=== PATIENT | male | born 1975 | race Asian ===

== ENCOUNTER 2025-07-29 08:48 | Outpatient (AMB) | payer MEDICAID, SELFPAY ==
--- NOTE | 2025-07-29 08:53 | A.OFFVIS_ITS ---
Intake Visit Reasons: low testosterone Intake Note: Patient is present for LOW TESTOSTERONE Urology Medication:NONE Antibiotic Allergy:NONE Blood Thinner:NONE TODAY'S PVR:0ML'S Sales Analyst Required: No Allergies No Known Allergies Allergy (Verified 07/29/25 09:30) Medication List - Last Reconciled 07/29/25 by ALESSIO Pathak-GIAN alcohol swabs (Alcohol Prep Pads) pad topical DAILY aspirin 81 mg PO DAILY ergocalciferol (vitamin D2) 1,250 mcg PO QWEEK fenofibric acid (choline) 135 mg PO DAILY lancets (FreeStyle Lancets) As directed metformin 500 mg PO QAM simvastatin 10 mg PO BEDTIME HPI Comments Details: William is a pleasabt 49 year old male patient of Dr. Gonzalez who was accompanied by his significant other at today's office visit. He has a past me dical history of pre-diabetes, hyperlipidemia, and nephrolithiasis. He presents to the office today as a new patient for hypogonadism. In discussion with the patient today reports having followed up with his PCP and having had blood work done at which time recommendations were made for urology referral for further assessment evaluation. We did discussed potential causes of hypogonadism as well as signs and symptoms of hypogonadism. He does not feel he has any symptoms. He denies fatigue, low libido, ED, memory followed, and or any signs and symptoms of hypogonadism. He brings with him to the office today labs. It appears testosterone 03/26 237, A1c 03/26 5.9. He does report previous history of nephrolithiasis 2-3 years ago however never requiring surgical intervention. When asked he denies any bothersome urinary issues. He denies urinary urgency, urinary frequency, incontinence, nocturia, hematuria, dysuria, foul smelling urine, changes to urinary stream, flank pain, fever, and or chills. He is happy with his current voiding parameters. In office urinalysis results reviewed with the patient today. We discussed further workup of nephrolithiasis as well as hypogonadism and risks and benefits of these interventions. When asked he denies any previous history of anabolic steroid use, recent illnesses, trauma, and or recreational drug use. All questions were answered. He otherwise offers no other issues or concerns at this time. [facility] Medical History Dermatitis Fatigue Low testosterone in male Mixed hyperlipidemia Prediabetes Review of Systems Const All systems reviewed & are unremarkable except as noted in HPI and below Physical Exam Const General: cooperative, healthy appearing, comfortable, no acute distress, well developed, alert and awake Nutritional Appearance: overweight Orientation/consciousness: patient oriented x3 Limitations: no limitations HEENT Head: Yes normal to inspection, Yes normocephalic and Yes atraumatic Ears: hearing grossly normal bilaterally Eyes General: appearance normal, both eyes and all related structures Neck Neck: Yes normal visual inspection and Yes trachea midline Chest Chest palpation & inspection: normal inspection of the chest Resp Effort & Inspection: normal respiratory effort and able to speak in complete sentences Cardio Rate: regular rate GI Inspection: Yes normal to inspection General: Yes no CVA tenderness Back/Spine/Pelvis Back: no CVA tenderness Skin General skin exam: no rashes or lesions noted Neuro General: patient oriented x3 Extrem General: Yes normal to inspection Psych Appearance: grossly normal and well kempt Mental Status: mental status grossly normal Speech and movement: Normal speech and movement present and Clear speech present Affect: normal affect Attitude: cooperative Thought process: Normal thought process present Thought content: Normal thought content present Insight: Fair insight present (Psych) Judgement: Fair judgement present (Psych) Office Procedures Post Void Residual Post Residual Void Post Void Residual (PVR): 0 [id number] Void Residual by ultrasound Results AMB Urinalysis, Automated UA Leukoctes 0 Asha/uL Last Edit by SALMA Treviño on 07/29/25 09:06 UA Nitrite Negative Last Edit by SALMA Treviño on 07/29/25 09:06 UA Urobilinogen 0.2 mg/dL Last Edit by SALMA Treviño on 07/29/25 09:0 6 UA Protein 30 mg/dL Last Edit by SALMA Treviño on 07/29/25 09:06 UA pH 6.0 Last Edit by SALMA Treviño on 07/29/25 09:06 UA Blood 0 Luis Carlos/uL Last Edit by SALMA Treviño on 07/29/25 09:06 UA Specific [place] 1.025 Last Edit by SALMA Treviño on 07/29/25 09: 06 UA Ketone Negative Last Edit by SALMA Treviño on 07/29/25 09:06 UA Bilirubin 0 mg/dL Last Edit by SALMA Treviño on 07/29/25 09:06 UA Glucose 0 mg/dL Last Edit by SALMA Treviño on 07/29/25 09:06 Results Reviewed Results Reviewed: Laboratory Last Values Urine pH (Auto) 6.0 07/29/25 09:06 Specific [place] (Auto) 1.025 07/29/25 09:06 Urine Protein (Auto) 30 mg/dL 07/29/25 09:06 Glucose (UA)(Auto) 0 mg/dL 07/29/25 09:06 Urine Ketones (Auto) Negative 07/29/25 09:06 Urine Blood (Auto) 0 Luis Carlos/uL 07/29/25 09:06 Urine Nitrite (Auto) Negative 07/29/25 09:06 Urine Bilirubin (Auto) 0 mg/dL 07/29/25 09:06 Urine Urobilinogen (Auto) 0.2 mg/dL 07/29/25 09:06 Leukocyte Esterase (Auto) 0 Asha/uL 07/29/25 09:06 Assessment & Plan Assessment & Plan (1) Hypogonadism in male: Code(s): E29.1 - Testicular hypofunction Category: Medical (2) Nephrolithiasis: Code(s): N20.0 - Calculus of kidney Category: Medical Plan In office urinalysis results with the patient today; as noted above. We discussed potential causes of hypogonadism as well as further workup in risks and benefits of these interventions. He currently denies any bothersome urinary issues. He reports be happy with current voiding parameters. Will obtain renal ultrasound for history of nephrolithiasis. All questions were answered. Will obtain SHBG, PSA, testosterone free and total, prolactin, LH, FSH, and estradiol for further assessment evaluation. We did discuss lifestyle modifications to assist with hypogonadism. We discussed importance of adequate hydration relation to nephrolithiasis as well as overall health and well-being. Follow-up in 1-3 months with imaging and labs; or sooner with any issues, concerns, and or questions. Orders: Orders AMB Urinalysis Automated Today Z13.9 - Encounter for screening, unspecified Sex Hormone Binding Globulin Today E29.1 - Testicular hypofunction Prostate Specific Antigen Today E29.1 - Testicular hypofunction US renal BI Today N20.0 - Calculus of kidney Testosterone, Free/Total Today E29.1 - Testicular hypofunction Prolactin Today E29.1 - Testicular hypofunction Lutenizing Hormone Today E29.1 - Testicular hypofunction Follicle Stimulating Hormone Today E29.1 - Testicular hypofunction Estrad Free (Tot Ultra + Free) Today E29.1 - Testicular hypofunction Patient Instructions: The patient had an opportunity to ask questions regarding the treatment plan. All questions were answered. Physical exam, labs, and imaging were discussed and reviewed in detail. As well as risks, benefits, and discussion of treatment choices. No major barriers to understanding were identified. The patient expressed understanding and agreement with the above treatment plan. The patient was made aware they should contact our office by phone for worsening of their current condition, the appearance of new symptoms, or with any questions or concerns. Compliance is encouraged with any medications and follow up testing that is ordered. It is a privilege to be allowed the opportunity to participate in? your urological care.? Again, if you have any questions or concerns If you have any questions or concerns please do not hesitate to contact me. The office is [phone]. This note is constructed using voice recognition software. While every effort has been made to ensure accuracy catering director errors may have been included. Yours sincerely, BARRETT Pathak Coding Level of Care Code New Pt Level 3 (06651) Diagnoses Hypogonadism in male E29.1 Nephrolithiasis N20.0 CPT Codes Post Residual Void - PVR CPT Code: 78920-[id number] Void Residual by ultrasound ([id number])
--- OUTSIDE RECORDS SUMMARY | 2025-07-29 09:35 | XMS_ITS | Clinical Summary ---
Author Organization [facility] Address [address] [place] [address] Care Team Providers Care Records Administrator Name Role Phone Unavailable Primary Care Provider Unavailabl e Encounters Date Type Department Care Team Description 06/22/2025 Population Health Risk Score [facility] Care [facility] ([facility]) Department [address] [place] [id number] Provider, Population Health Generic from Last 3 Months Social History Tobacco Use Types Packs/Day Years Used Date Smoking Tobacco: Never Assessed Sex and Gender Information Value Date Recorded Sex Assigned at Not on file Legal Sex Male 9:29 PM EDT Gender Identity Not on file Sexual Orientation Not on file Plan of Treatment Health Maintenance Due Date Last Done Comments CT Colonography 1973 Depression Screening 1973 FIT DNA/Cologuard 1973 FOBT 1973 Lipid Panel 1973 SDOH Screening 1973 Sigmoidoscopy 1973 Disability Screening 1973 Alcohol/Substance Use Screening 1985 Tobacco Screening 1985 Family Planning (PISQ) 1988 Hepatitis C Screening 1991 Hepatitis A Vaccines (1 of 2 - Risk 2-dose series) 1992 FIT 10/12/2022 10/12/2021 Pneumococcal Vaccine: 50+ Years (1 of 1 - PCV) 2023 Zoster Vaccines (1 of 2) 2023 COVID-19 Vaccine (2023- season) 2024 05/23/2022, 05/02/2021, 04/04/2021 Hepatitis B Vaccines (2 of 2 - CpG 2-dose series) 10/20/2024 09/22/2024 Influenza Vaccine (#1) 2025 , 09/22/2021, 10/10/2020, Additional history exists DTaP/Tdap/Td Vaccines (2 - Td or Tdap) 09/22/2031 09/22/2021 Colonoscopy 11/04/2034 11/04/2024 Colorectal Cancer Screening 11/04/2034 RSV Patients and Patients Aged 60 years or older (1 - 1-dose 75+ series) 2048 HIV Screening Completed 07/21/2024, 07/21/2024 HIB Vaccines Aged Out No longer eligi ble based on patient's age to complete this topic HPV Vaccines Aged Out No longer eligi ble based on patient's age to complete this topic IPV Vaccines Aged Out No longer eligi ble based on patient's age to complete this topic Meningococcal B Vaccine Aged Out No l onger eligible based on patient's age to complete this topic Meningococcal Vaccine Aged Out No perez sarah eligible based on patient's age to complete this topic RSV under 20 months Aged Out No longe r eligible based on patient's age to complete this topic Rotavirus Vaccines Aged Out No longer eligible based on patient's age to complete this topic
--- OUTSIDE RECORDS SUMMARY | 2025-07-29 09:35 | XMS_ITS | Clinical Summary ---
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 Name Role Phone Giselle Lindsey [facility] Primary Care Provider [phone] Source Comments PLEASE NOTE, if this patient is a minor, it may be UNLAWFUL to discuss sensitive information that is contained in these records (such as FAMILY PLANNING, MENTAL HEALTH or SUBSTANCE ABUSE) with the minor patient's parent or other person without the patient's specific authorization.[facility] Allergies No known active allergies Medications aspirin-acetaminop hen-caffeine (EXCEDRIN MIGRAINE) 250-250-65 mg per tabletIndications: Other headache syndrome Take 2 Tabs by mouth 2 (two) times daily as needed for other reason (headache) Max 4 tabs per day 30 Tab 1 04/01/20 20 Active latanoprost (XALATAN) 0.005 % ophthalmic solutionIndication s:Acute upper back pain 02/14/20 22 Active travoprost (TRAVATAN Z) 0.004 % ophthalmic solutionIndication s:Absolute glaucoma of both eyes Apply 1 Drop to eye daily 2.5 mL 2 04/19/20 23 Active carbamide peroxide (DEBROX) 6.5 % otic solutionIndication s:Cerumen debris on tympanic membrane of both ears Place 5 Drops into both ears 2 (two) times daily 15 mL 11/27/20 23 Active clobetasoL (TEMOVATE) 0.05 % gelIndications:Ecz darian, unspecified type Apply topically 2 (two) times daily At right thumb 15 g 2 07/21/20 24 Active lidocaine (LIDODERM) 5 % patchIndications:E ssential hypertension Place 1 Patch onto the skin once daily (every 24 hours) For upper mid back pain. 30 Patch 2 07/21/20 24 Active ibuprofen 600 mg tabletIndications: Essential hypertension Take 1 Tablet by mouth 3 (three) times daily as needed for pain 60 Tablet 2 07/21/20 24 Active acetaminophen (TYLENOL) 500 mg tabletIndications: Essential hypertension Take 2 Tablets by mouth every 8 (eight) hours as needed for pain 6 tabs per day 60 Tablet 2 07/21/20 24 Active MISCELLANEOUS MEDICAL SUPPLY MISCIndications:Es sential hypertension Regular adult size Blood pressure meter. Daily. Dx:I10. Need; 1 year 1 Each 07/24/20 24 Active omeprazole (PRILOSEC) [address] capsuleIndications :H. pylori infection Take 1 Capsule by mouth 2 (two) times daily before a meal For heartburn 180 Capsule 1 07/24/20 24 Active meclizine (ANTIVERT) 25 mg tabletIndications: Vertigo Take 1 Tablet by mouth every 8 (eight) hours as needed for dizziness 30 Tablet 2 09/22/20 [address] tabletIndications: Essential hypertension Take 1 Tablet by mouth once daily 90 Tablet 3 11/16/20 24 Active sucralfate (CARAFATE) 100 mg/mL suspensionIndicati ons:H. pylori infection Take 10 mL by mouth 4 (four) times daily before meals and nightly As needed for heartburn 141 mL 2 03/03/20 25 Active blood-glucose meter monitoring kitIndications:Pre diabetes Freestyle lite glucometer, check sugar daily. Dx; R73.03 1 Each 03/03/20 25 Active blood sugar diagnostic stripsIndications: Prediabetes Freestyle lite teststrips, check sugar daily. Dx; R73.03 100 Each 03/18/20 25 Active alcohol swabsIndications:P rediabetes check sugar daily. Dx; R73.03 100 Each 03/18/20 25 Active lancetsIndications :Prediabetes Freestyle lite lancets, check sugar daily. Dx; R73.03 100 Each 03/18/20 25 Active fenofibric acid, choline, (TRILIPIX) [address] capsuleIndications :Hypertriglyceride jacqui Take 1 Capsule by mouth once daily For cholesterol 90 Capsule 1 03/18/20 25 Active DAILY-JIMI, WITH FOLIC ACID, 400 mcg tab Take 1 Tablet by mouth once daily Active testosterone (ANDROGEL) 12.5 mg/ 1.25 gram (1 %) gel pumpIndications:Te sticular hypofunction Place 2 Pumps onto the skin once daily for 30 days 75 g 04/08/20 25 Active metFORMIN (GLUCOPHAGE) 500 mg tabletIndications: Prediabetes Take 1 Tablet by mouth once daily with breakfast For prediabetes 90 Tablet 1 04/14/20 25 Active triamcinolone (KENALOG) 0.1 % lotionIndications: Other eczema Apply topically 2 (two) times daily 60 mL 1 04/14/20 25 Active vitamin B complex capsuleIndications :Other fatigue Take 1 Capsule by mouth once daily 90 Capsule 1 04/14/20 25 Active simvastatin (ZOCOR) 10 mg tabletIndications: Mixed hyperlipidemia Take 1 Tablet by mouth nightly at bedtime. 90 Tablet 1 05/19/20 25 Active multivitamin tabletIndications: Essential hypertension Take 1 Tablet by mouth once daily. 90 Tablet 3 05/19/20 25 Active hydrocortisone 2.5 % creamIndications:D ermatitis Apply topically 2 (two) times daily. 30 g 2 05/19/20 25 Active mineral oil-hydrophil petrolat (AQUAPHOR) ointmentIndication s:Dermatitis Apply topically 2 (two) times daily. 50 g 1 05/19/20 25 Active ergocalciferol (VITAMIN D-2) 1,250 mcg (50,000 unit) capsuleIndications :Vitamin D deficiency Take 1 Capsule by mouth once a week. 12 Capsule 3 05/20/20 25 Active enalapril (VASOTEC) 10 mg tabletIndications: Essential hypertension TAKE 1 TABLET BY MOUTH EVERY DAY FOR BLOOD PRESSURE 90 Tablet 05/30/20 25 Active Active Problems Problem Noted Date Diagnosed Date H. pylori infection 07/24/2024 Overview (07/24/2024): 07/24/2024: txt for H. pylori infection Plan : OMEPRAZOLE 20 MG CAPSULE,DELAYED RELEASE - Take 1 Capsule by mouth 2 (two) times daily before a meal For heartburn BISMUTH SUBSALICYLATE 262 MG CHEWABLE TABLET - Place 1 Tablet into mouth, chew and swallow 4 (four) times daily for 14 days TETRACYCLINE 500 MG CAPSULE - Take 1 Capsule by mouth 4 (four) times daily before meals and nightly for 14 days METRONIDAZOLE 500 MG TABLET - Take 1 Tablet by mouth 4 (four) times daily for 14 days 04/2023 txt: take omeprazole 20 mg twice a day then Take CLARITHROMYCIN 500 MG TABLET - Take 1 Tablet by mouth 2 (two) times daily for 14 days AMOXICILLIN 500 MG TABLET - Take 2 Tablets by mouth 2 (two) times daily for 14 days Impaired vision, left 04/05/2023 Overview (04/05/2023): 01/2023: Saw optahl; see note Epigastric abdominal pain 04/05/2023 Bunion, left foot 04/05/2023 Fatigue 04/05/2023 Forgetfulness 04/05/2023 Positive QuantiFERON-TB Gold test: did txt on 03/12/2022 Overview (03/12/2022): Pt had chest Xray on 02/09/2022 at [facility]: : FINDINGS: No significant abnormalities seen involving the heart, lungs, mediastinum or bony thorax. IMPRESSION: No acute intrathoracic disease. Family history of heart disease 02/20/2022 Colon, diverticulosis 08/23/2020 Overview (08/23/2020): 08/05/2020: CT of abd/pelvis at [facility]: Direct comparison to noncontrast Abdomen- Pelvis CT: 04/27/2019. Coronary artery calcification. Fatty liver (mild). Grossly intact gallbladder. Nonenlarged spleen with adjacent splenule. Essentially unremarkable unenhanced pancreas. No adrenal mass. Abdominal aorta normal in caliber. Unenhanced kidneys normal size and position. Nephrolithiasis includes essentially similar 5 mm curvilinear upper pole right renal stone and punctate interpole left renal stone. Essentially similar overall mild left-sided hydronephrosis secondary to a 3 mm rounded distal left ureteral stone located just proximal to left ureterovesicular junction (UVJ). Grossly intact urinary bladder. No intra-abdominal free air. No gross lymphadenopathy. Colonic diverticulosis. Grossly intact appendix. Mild lumbosacral degenerative disease. IMPRESSION: Mild left-sided obstructive uropathy secondary to distal left ureteral stone by noncontrast CT analysis, similar when compared to 04/27/2019. DDD (degenerative disc disease), lumbar 08/23/20 Overview (08/23/2020): 08/05/2020: CT of abd/pelvis at [facility]: Direct comparison to noncontrast Abdomen- Pelvis CT: 04/27/2019. Coronary artery calcification. Fatty liver (mild). Grossly intact gallbladder. Nonenlarged spleen with adjacent splenule. Essentially unremarkable unenhanced pancreas. No adrenal mass. Abdominal aorta normal in caliber. Unenhanced kidneys normal size and position. Nephrolithiasis includes essentially similar 5 mm curvilinear upper pole right renal stone and punctate interpole left renal stone. Essentially similar overall mild left-sided hydronephrosis secondary to a 3 mm rounded distal left ureteral stone located just proximal to left ureterovesicular junction (UVJ). Grossly intact urinary bladder. No intra-abdominal free air. No gross lymphadenopathy. Colonic diverticulosis. Grossly intact appendix. Mild lumbosacral degenerative disease. IMPRESSION: Mild left-sided obstructive uropathy secondary to distal left ureteral stone by noncontrast CT analysis, similar when compared to 04/27/2019. Left nephrolithiasis 08/23/2020 Overview (08/23/2020): 08/05/2020: CT of abd/pelvis at [facility]: Direct comparison to noncontrast Abdomen- Pelvis CT: 04/27/2019. Coronary artery calcification. Fatty liver (mild). Grossly intact gallbladder. Nonenlarged spleen with adjacent splenule. Essentially unremarkable unenhanced pancreas. No adrenal mass. Abdominal aorta normal in caliber. Unenhanced kidneys normal size and position. Nephrolithiasis includes essentially similar 5 mm curvilinear upper pole right renal stone and punctate interpole left renal stone. Essentially similar overall mild left-sided hydronephrosis secondary to a 3 mm rounded distal left ureteral stone located just proximal to left ureterovesicular junction (UVJ). Grossly intact urinary bladder. No intra-abdominal free air. No gross lymphadenopathy. Colonic diverticulosis. Grossly intact appendix. Mild lumbosacral degenerative disease. IMPRESSION: Mild left-sided obstructive uropathy secondary to distal left ureteral stone by noncontrast CT analysis, similar when compared to 04/27/2019. Fatty liver 08/23/2020 Overview (08/23/2020): 08/05/2020: CT of abd/pelvis at [facility]: Direct comparison to noncontrast Abdomen- Pelvis CT: 04/27/2019. Coronary artery calcification. Fatty liver (mild). Grossly intact gallbladder. Nonenlarged spleen with adjacent splenule. Essentially unremarkable unenhanced pancreas. No adrenal mass. Abdominal aorta normal in caliber. Unenhanced kidneys normal size and position. Nephrolithiasis includes essentially similar 5 mm curvilinear upper pole right renal stone and punctate interpole left renal stone. Essentially similar overall mild left-sided hydronephrosis secondary to a 3 mm rounded distal left ureteral stone located just proximal to left ureterovesicular junction (UVJ). Grossly intact urinary bladder. No intra-abdominal free air. No gross lymphadenopathy. Colonic diverticulosis. Grossly intact appendix. Mild lumbosacral degenerative disease. IMPRESSION: Mild left-sided obstructive uropathy secondary to distal left ureteral stone by noncontrast CT analysis, similar when compared to 04/27/2019. Decreased vision in both eyes 07/24/2020 Resolved Problems Problem Noted Date Diagnosed Date Resolved Date Lower abdominal pain 02/20/2022 023 Chest tightness 02/20/2022 04/05/2023 Encounters Date Type Department Care Team Description 05/20/2025 Results Follow-Up [address] [id number] Tabatha Gonzalez FNP 05/19/2025 11:20 AM EDT Office Visit [address] [address] Tabatha Gonzalez FNP from Last 3 Months Immunizations Immunization Administration Dates Next Due Flu, Adjuvant, 65y+ (Fluad) 10/10/2020 Flu, Cell Culture based, Pre servative Free, 6m+, Flucelvax 01/12/2020 Flu, Preservative Free 10/11/2022,09/22/2021,08/2020 Hep B,adult,adjuvanted (HEPLISAV) 09/22/2024 Moderna COVID-19 Vaccine, re d cap blue label, 12+ Primary Series 05/02/2021,04/04/2021 PFIZER COVID VACCINE, PURPLE CAP, 12+ 05/23/2022 TDAP 09/22/2021 Family History Medical History Relation Name Comments No Known Problems Brother Hypertension Father due to hea rt attack Heart Problems (aka Heart Disease) Mother Hypertension Mother Tuberculosis Mother Heart Problems Sister due to h eart attack Relation Name Status Comments Brother Alive Father Maternal Grandfather Maternal Grandmother Mother Other Sister (Age 56) Heart lizet ck Paternal Grandfather Paternal Grandmother Sister Social History Tobacco Use Types Packs/Day Years Used Date Smoking Tobacco: Never Smokeless Tobacco: Never Tobacco Cessation:Counseling Given: Not Answered Alcohol Use Standard Drinks/Week Comments Never 0 (1 standard drink = 0.6 oz pur e alcohol) Social Connections Answer Date Recorded Connectedness 0 08/14/2024 Financial Resource Strain Answer Date R ecorded Financial Resource Strain 0 2018 Stress Answer Date Recorded Stress 0 07/27/2019 Physical Activity Answer Date Recorded Physical Activity 0 07/27/2019 Food Insecurity Answer Date Recorded Food 0 08/27/2024 Transportation Needs Answer Date Record ed Transportation 0 07/27/2019 Housing Stability Answer Date Recorded Housing 0 07/27/2019 Safety and Environment Answer Date [place] rded Safety 0 07/27/2019 Utilities Answer Date Recorded Utilities 0 07/27/2019 Employment Answer Date Recorded Stress 0 08/14/2024 Sex and Gender Information Value Date Recorded Sex Assigned at Male 04/10/2019 2:25 PM PDT Legal Sex Male 6:37 AM PDT Gender Identity Male 04/10/2019 2:25 PM PDT Sexual Orientation Straight 04/10/2019 2: 25 PM PDT Last Filed Vital Signs Vital Sign Reading Time Taken Comments Blood Pressure 112/70 05/19/2025 11:26 AM EDT Pulse 74 05/19/2025 11:26 AM EDT Temperature 36.9 C (98.4 F) 05/19/2025 11:26 AM EDT Respiratory Rate 16 05/19/2025 11:26 AM EDT Oxygen Saturation 98% 05/19/2025 11:26 AM EDT Inhaled Oxygen Concentration - - Weight 93 kg (205 lb) 05/19/2025 11:26 AM EDT Height 172.7 cm (5' 8 ) 05/19/2025 11:26 AM EDT Body Mass Index 31.17 05/19/2025 11:26 AM EDT Plan of Treatment Health Maintenance Due Date Last Done Comments Dental FMX/Pano 1973 Dental Perio Charting [address] Colonography 2018 Fecal DNA 2018 Flexible Sigmoidoscopy 2018 FIT/gFOBT 10/12/2022 10/12/2021 Imm-Pneumococcal 50+ (1 of 1 - PCV) 2023 Imm-Zoster, Recombinant (1 of 2) 2023 Dental BW 05/26/2024 05/24/2023 Dental Examination 05/26/2024 05/24/2023 [id number] ( season) 2024 05/23/2022, 05/02/2021, 04/04/2021 Imm-Hepatitis B (2 of 2 - Cp G 2-dose series) 10/20/2024 09/22/2024 HIV Screening 07/21/2025 07/21/2024, 01/25/2021 Syphilis Screening 07/21/2025 07/21/2024 Imm-Influenza (#1) 2025 10/11/2022, 1 , 10/10/2020, Additional history exists Annual Wellness (Adult): Indicated (All Coverage) 09/22/2025 09/22/2024, 04/05/2023, 05/25/2019 Diabetes Screening 03/23/2026 03/23/2025, 0 03/23/2025, 07/21/2024, Additional history exists Lipid Screening 03/23/2026 03/23/2025, 08/2 , 04/05/2023, Additional history exists Anxiety Screening 04/14/2026 04/14/2025 Tobacco Screening 05/19/2026 05/19/2025 Imm-DTaP/Tdap/Td (2 - Td or Tdap) 09/22/2031 021 Colonoscopy 11/04/2034 11/04/2024 Colorectal Cancer Screening 11/04/2034 Hepatitis C Screening Completed 01/25/2021 Hepatitis B Screening Completed 07/21/2024 , 07/21/2024, 04/05/2023, Additional history exists Alcohol and Drug Screen Completed 03/18/20, 07/21/2024, 02/14/2022, Additional history exists Depression Annual Screen Completed 04/14/2025 Imm-Hepatitis A Discontinued Procedures Procedure Name Priority Date/Time Associated Diagnosis Comments IRON, TIBC, FERRITIN PANEL Routine 05/19/2025 11:59 AM EDT Fatigue, unspecified type 25 HYDROXY INCLUDES FRACTIONS IF PERFORMED Routine 05/19/2025 11:59 AM EDT Fatigue, unspecified type HGA1C W/EAG Routine 03/23/2025 1:23 PM EDT Prediabetes LIPIDS W RFLX TO DIRECT LDL Routine 03/23/2025 1:23 PM EDT Hypertriglyceridemi a HISTORIC COLONOSCOPY 11/04/2024 3:00 AM EST HIV 1/2 AG & AB W/RFLX (4TH GEN) Routine 07/21/2024 5:31 PM EDT Eczema, unspecified type H. pylori infection Essential hypertension Encounter for laboratory test RPR (DIAGNOSIS) WITH REFLEX TO TITER AND CONFIRMATORY TESTING Routine 07/21/2024 5:31 PM EDT Eczema, unspecified type H. pylori infection Essential hypertension Encounter for laboratory test HEPATITIS B SURFACE AG, EIA WITH REFLEX CONFIRM Routine 07/21/2024 5:31 PM EDT Eczema, unspecified type H. pylori infection Essential hypertension Encounter for laboratory test BITEWINGS - FOUR RADIOGRAPHIC IMAGES Routine 05/24/2023 10:20 AM EDT Caries Encounter for dental examination Full PERIODIC ORAL EVALUATION ESTABLISHED PATIENT Routine 05/24/2023 10:20 AM EDT Caries Encounter for dental examination FECAL GLOBIN BY IMMUNOCHEMISTRY (FIT) Routine 10/12/2021 12:38 PM EST Colon cancer screening HEPATITIS C ANTIBODY Routine 01/25/2021 11:31 AM EST Essential hypertension from Last 3 Months or Most Recently Relevant to Health Maintenance Results * IRON, TIBC, FERRITIN PANEL Routine (05/19/2025 11:59 AM EDT) FERRITIN 103 38 - 380 ng/mL Green A IRON, TOTAL 127 50 - 180 mcg/dL [facility] IRON BINDING CAPACITY 385 250 - 425 mcg/dL (calc) [facility] % SATURATION 33 20 - 48 % (calc) Green A Blood Blood / Unknown 05/19/2025 1 1:59 AM EDT 05/19/2025 12:00 PM EDT Narrative [facility] - 05/20/2025 6:49 PM EDT FASTING:NO Tabatha YUNP LAB - BLOOD DRAW Fin al Result [employer] [address] [place] [id number], [facility] [address] [address] * (ABNORMAL) 25 HYDROXY INCLUDES FRACTIONS IF PERFORMED Routine (05/19/2025 11:59 AM EDT) VITAMIN D, 25-OH, TOTAL 19(L) 30 - 100 ng/mL [facility] Comment: Vitamin D Status 25-OH Vitamin D: Deficiency: <20 ng/mL Insufficiency: 20 - 29 ng/mL Optimal: > or = 30 ng/mL For 25-OH Vitamin D testing on patients on D2-supplementation and patients for whom quantitation of D2 and D3 fractions is required, the QuestAssureD(TM) 25-OH VIT D, (D2,D3), LC/MS/MS is recommended: order code 35910 (patients >2yrs). COMMENT [facility] [employer] Blood Blood / Unknown 05/19/2025 1 1:59 AM EDT 05/19/2025 12:00 PM EDT Narrative [employer] - 05/20/2025 6:49 PM EDT FASTING:NO See Note 1 Note 1 For additional information, please refer to http://education.Alfalight/faq/ASE687 (This link is being provided for informational/ educational purposes only.) Tabatha Carlos [facility] LAB - BLOOD DRAW Leroy nancy Result - Final Performing Organization Address [facility] de Phone Number [employer] [address] [place] [phone], [facility] [address] [phone] * (ABNORMAL) HGA1C W/EAG (03/23/2025 1:23 PM EDT) HEMOGLOBIN A1C 5.9(H) <5.7 % Green [facility] Comment: For someone without known diabetes, a hemoglobin A1c value between 5.7% and 6.4% is consistent with prediabetes and should be confirmed with a follow-up test. For someone with known diabetes, a value <7% indicates that their diabetes is well controlled. A1c targets should be individualized based on duration of diabetes, age, comorbid conditions, and other considerations. This assay result is consistent with an increased risk of diabetes. Currently, no consensus exists regarding use of hemoglobin A1c for diagnosis of diabetes for children. EAG (MG/DL) 123 mg/dL [facility] EAG (MMOL/L) 6.8 mmol/L [facility] Blood Blood / Unknown 03/23/2025 1 :23 PM EDT 03/23/2025 1:24 PM EDT Narrative [employer] - 03/27/2025 5:36 PM EDT FASTING:NO Tabatha Carlos [facility] LAB - BLOOD DRAW Leroy nancy Result - Final Performing Organization Address [facility]/ZIP Co de Phone Number [employer] [address] [place] [address] [place] [address], [employer] [facility] [address] [place] [address] * (ABNORMAL) LIPIDS W RFLX TO DIRECT LDL (03/23/2025 1:23 PM EDT) CHOLESTEROL, TOTAL 178 <200 mg/dL [employer] [facility] HDL CHOLESTEROL 34(L) > OR = 40 mg/dL [employer] [facility] TRIGLYCERIDES 327(H) <150 mg/dL [employer] [facility] Comment: If a non-fasting specimen was collected, consider repeat triglyceride testing on a fasting specimen if clinically indicated. Brianne et al. J. of Clin. Lipidol. 2015;9:129-169. LDL-CHOLESTEROL 100(H) 99 mg/dL (calc) [employer] [facility] Comment: Reference range: <100 Desirable range <100 mg/dL for primary prevention; <70 mg/dL for patients with CHD or diabetic patients with > or = 2 CHD risk factors. LDL-C is now calculated using the Mike-Rajiv calculation, which is a validated novel method providing better accuracy than the Friedewald equation in the estimation of LDL-C. Mike KENNY et al. ADDIE. 2013;310(19): 6960-9402 (http://education.Alfalight/faq/BYS866) CHOL/HDLC RATIO 5.2(H) <5.0 (calc) [facility] NON-HDL CHOLESTEROL 144(H) <130 mg/dL (calc) [employer] [facility] Comment: For patients with diabetes plus 1 major ASCVD risk factor, treating to a non-HDL-C goal of <100 mg/dL (LDL-C of <70 mg/dL) is considered a therapeutic option. Blood Blood / Unknown 03/23/2025 1 :23 PM EDT 03/23/2025 1:24 PM EDT Narrative [facility] - 03/27/2025 5:36 PM EDT FASTING:NO Tabatha MCCALLUM LAB - BLOOD DRAW Fin al Result [facility] [address] [address], [place] [address] [address] * HISTORIC COLONOSCOPY (11/04/2024 3:00 AM EST) 11/04/2024 3:00 AM EST Giselle [place] [facility] PROCEDURES Final Result * RPR (DIAGNOSIS) WITH REFLEX TO TITER AND CONFIRMATORY TESTING (07/21/2024 5:31 PM EDT) RPR (DX) W/REFL TITER AND CONFIRMATORY TESTING NON-REACT DAYANA NON-REACT DAYANA [employer] [facility] Comment: No laboratory evidence of syphilis. If recent exposure is suspected, submit a new sample in 2-4 weeks. Serum Blood / Unknown 07/21/2024 5 :31 PM EDT 07/21/2024 5:32 PM EDT [facility] [place] Jielai CommunicationFormerly [facility] LAB - BLOOD DRAW Edited Result - Final [employer] [address] [address], [employer] [address] [address] * HIV 1/2 AG & AB W/RFLX (4TH GEN) (07/21/2024 5:31 PM EDT) HIV AG/AB, 4TH GEN NON-REAC TIVE NON-REAC TIVE [employer] [facility] Comment: HIV-1 antigen and HIV-1/HIV-2 antibodies were not detected. There is no laboratory evidence of HIV infection. PLEASE NOTE: This information has been disclosed to you from records whose confidentiality may be protected by state law. If your state requires such protection, then the state law prohibits you from making any further disclosure of the information without the specific written consent of the person to whom it pertains, or as otherwise permitted by law. A general authorization for the release of medical or other information is NOT sufficient for this purpose. For additional information please refer to http://education.GetThis/faq/EBZ612 (This link is being provided for informational/ educational purposes only.) The performance of this assay has not been clinically validated in patients less than 2 years old. Blood Blood / Unknown 07/21/2024 5 :31 PM EDT 07/21/2024 5:32 PM EDT [facility] LAB - BLOOD DRAW Final Result Performing Organization Address [facility] Co de Phone Number [employer] [address] [address], [employer] [address] [phone] * HEPATITIS B SURFACE AG, EIA WITH REFLEX CONFIRM (07/21/2024 5:31 PM EDT) HEPATITIS B SURFACE ANTIGEN NON-REACT DAYANA NON-REACT DAYANA [employer] [facility] COMMENT [facility] [employer] [facility] Blood Blood / Unknown 07/21/2024 5 :31 PM EDT 07/21/2024 5:32 PM EDT Narrative [facility] - 07/23/2024 10:56 AM EDT For additional information, please refer to http://education.GetThis/faq/ZJM275 (This link is being provided for informational/ educational purposes only.) Giselle GuFormerly [facility] LAB - BLOOD DRAW Edited Result - Final Performing Organization Address [facility] de Phone Number [employer] [address] [address], [employer] [address] [address] * FIT DIAGNOSITC ONLY (10/12/2021 12:38 PM EST) FECAL GLOBIN BY IMMUNOCHEMISTRY See Note [employer] [facility] Comment: FECAL GLOBIN BY IMMUNOCHEMISTRY Micro Number: [id number] Test Status: Final Specimen Source: Insure (tm) fobt test card Specimen Quality: Adequate Fecal Globin: Not Detected NO COLLECTION DATE RECEIVED. WE HAVE USED THE DATE THE SPECIMEN WAS RECEIVED BY THIS LABORATORY THE COLLECTION DATE. IF THIS IS INCORRECT, PLEASE CONTACT CLIENT SERVICES. PHONE NUMBER: Stool Stool specimen / Unknown 10/11/2021 8:58 AM EST Giselle Theodoredewaynekaylynn MANUFACTURING CHIEF ENGINEER LAB BODY FLUIDS AND STOOLS AMB ULATORY Final Result [facility] [address] [address], [facility] [address] [address] * HEPATITIS C ANTIBODY (01/25/2021 11:31 AM EST) HEPATITIS C VIRUS SCREEN NEGATIVE NEGATIVE [facility] Blood Blood / Unknown 01/25/2021 1 1:31 AM EST 01/25/2021 3:46 PM EST Narrative [facility] - 01/25/2021 5:38 PM EST [facility] [employer] [address] Professor Of French - Jacqueline Krishnamurthy MD PT ID [id number] ORD# [id number] Giselle Lindsey [facility] - BLOOD DRAW Final Result Performing Organization Address City/[facility]/ZIP Co de Phone Number [address] [address], from Last 3 Months or Most Recently Relevant to Health Maintenance [place] MED[place] D[place] [facility] NET DENTAL [address] ACO Care Teams Deputy Harbormaster Relationship Specialty Start Date End Date Giselle Lindsey FNP [address] [place] [address] PCP - General Internal Medicine 09/05/19
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
== END 2025-07-29 09:33 | disposition home or self-care (01) ==
LOC: HO.HUSH 08:49
PROVIDERS: Visit Provider Nurse Practitioner Family
DX: E29.1 Testicular hypofunction (principal); N20.0 Calculus of kidney; Z13.9 Encounter for screening, unspecified
CPT/HCPCS: 99203

== ENCOUNTER → 2025-07-29 08:48 | Outpatient (BNVA) | payer MEDICAID, SELFPAY | PROVIDERS: Visit Provider Nurse Practitioner Family | DX: E29.1 Testicular hypofunction (principal); N20.0 Calculus of kidney | CPT/HCPCS: 51798; 81003; 99212 ==

== ENCOUNTER 2025-09-29 11:36 | Outpatient (REF) | payer MEDICAID, SELFPAY ==
--- OUTSIDE RECORDS SUMMARY | 2025-09-24 10:40 | XMS_ITS | Encounter Summary ---
Author Organization [facility] Address [address] [place] [address] Care Team Providers Care Chemists Name Role Phone Giselle Lindsey Primary Care Provider [phone] Reason for Referral * Ophthalmology (Routine) - New Request Specialty Diagnoses / Procedures Referred By Sanam flores Referred To Contact Ophthalmology Diagnoses Impaired vision Giselle Lindsey FNP [address] [place] [address] Phone: tel: fax: Referral ID Status Reason Start Date Expiration Date Visits Requested Visits Authorized [id number] New Request Specialty Services Required 09/27/2026 1 1 Comments Ref to opthal for low vision at left eye. Need Mongolian int. Please eval and treat. Make actual appt for pt. (Ref department; Do not send pt to eye and lasik, clinic will not see him.) Reason for Visit * Reason Comments Complete Physical Exam Encounter Details Date Type Department Care Team (Late st Contact Info) Description 09/24/2025 10:40 AM EDT Office Visit [address] [phone] Giselle Lindsey FNP [address] [place] [address] Social History Tobacco Use Types Packs/Day Years [...] Orientation Straight 04/10/2019 2: 25 PM PDT documented as of this encounter Last Filed Vital Signs Vital Sign Reading Time Taken Comments Blood Pressure 108/82 09/24/2025 10:52 AM EDT Pulse 72 09/24/2025 10:52 AM EDT Temperature 36.7 C (98.1 F) 09/24/2025 10:52 AM EDT Respiratory Rate 16 09/24/2025 10:52 AM EDT Oxygen Saturation 98% 09/24/2025 10:52 AM EDT Inhaled Oxygen Concentration - - Weight 93.9 kg (207 lb) 09/24/2025 10:52 AM EDT Height 172.7 cm (5' 8 ) 09/24/2025 10:52 AM EDT Body Mass Index 31.47 09/24/2025 10:52 AM EDT documented in this encounter Progress Notes * ALESSIO Uriostegui - 09/24/2025 11:05 AM EDT Ceramic Plater: pt's HPI: William Smith is a 50 year old male presents today for annual physical examination. -has appt with derm Dr montejo: on 03/2026. Last Colonoscopy:2023: repeat in 10 years. -states has Left eye has low vision. In past was referred to Eye and lasik; he missed appt twice, so he cannot make appt anymore and clinic will not see him. Needs ref to different opthal clinic. -low testosterone; never took testo gel. He is going to see urologist for this issue. . -Vit D gel med; cannot take it due to gelatin. . No Known Allergies Patient Active Problem List Diagnosis Decreased vision in both eyes Colon, diverticulosis DDD (degenerative disc disease), lumbar Left nephrolithiasis Fatty liver Family history of heart disease Positive QuantiFERON-TB Gold test: did txt on 2022 Impaired vision, left Epigastric abdominal pain Bunion, left foot Fatigue Forgetfulness H. pylori infection Social History Substance and Sexual Activity Alcohol Use Never Social History Substance and Sexual Activity Drug Use Never Tobacco History Tobacco Use Smoking Status Never Smokeless Tobacco Never Family History Problem Relation Name Age of Onset Hypertension Mother Other (Heart Problems (aka Heart Disease)) Mother Tuberculosis Mother Hypertension Father 51 due to heart attack Heart Problems Sister 46 due to heart attack No Known Problems Brother Past Surgical History: Procedure Laterality Date TONSILLECTOMY PRIMARY/SECONDARY <AGE 12 1975 Current Outpatient Medications Medication Sig Dispense Refill cholecalciferol (VITAMIN D-3) 50 mcg (2,000 unit) tablet Take 1 Tablet by mouth once daily. 90 Tablet 3 clobetasoL (TEMOVATE) 0.05 % gel Apply topically 2 (two) times daily At right thumb. 15 g 2 clotrimazole-betamethasone (LOTRISONE) 1-0.05 % cream Apply topically 2 (two) times daily At hands.30 g 2 enalapril (VASOTEC) 10 mg tablet Take 1 Tablet by mouth once daily for blood pressure. 90 Tablet 3 metFORMIN (GLUCOPHAGE) 500 mg tablet Take 1 Tablet by mouth once daily with breakfast For prediabetes. 90 Tablet 1 blood sugar diagnostic strips Freestyle lite teststrips, check sugar daily. Dx; R73.03. 100 Each 11 lancets Freestyle lite lancets, check sugar daily. Dx; R73.03. 100 Each 11 hydrocortisone 2.5 % cream Apply topically 2 (two) times daily. 30 g 2 mineral oil-hydrophil petrolat (AQUAPHOR) ointment Apply topically 2 (two) times daily. 50 g 1 multivitamin tablet Take 1 Tablet by mouth once daily. 90 Tablet 3 triamcinolone (KENALOG) 0.1 % lotion Apply topically 2 (two) times daily 60 mL 1 vitamin B complex capsule Take 1 Capsule by mouth once daily 90 Capsule 1 alcohol swabs check sugar daily. Dx; R73.03 100 Each 11 DAILY-JIMI, WITH FOLIC ACID, 400 mcg tab Take 1 Tablet by mouth once daily blood-glucose meter monitoring kit Freestyle lite glucometer, check sugar daily. Dx; R73.03 1 Each 0 sucralfate (CARAFATE) 100 mg/mL suspension Take 10 mL by mouth 4 (four) times daily before meals and nightly As needed for heartburn 141 mL [address] tablet Take 1 Tablet by mouth once daily 90 Tablet 3 meclizine (ANTIVERT) 25 mg tablet Take 1 Tablet by mouth every 8 (eight) hours as needed for dizziness 30 Tablet 2 MISCELLANEOUS MEDICAL SUPPLY [facility] Regular adult size Blood pressure meter. Daily. Dx:I10. Need; 1 year 1 Each 0 omeprazole (PRILOSEC) [address] capsule Take 1 Capsule by mouth 2 (two) times daily before a meal For heartburn 180 Capsule 1 acetaminophen (TYLENOL) 500 mg tablet Take 2 Tablets by mouth every 8 (eight) hours as needed for pain 6 tabs per day 60 Tablet 2 ibuprofen 600 mg tablet Take 1 Tablet by mouth 3 (three) times daily as needed for pain 60 Tablet 2 lidocaine (LIDODERM) 5 % patch Place 1 Patch onto the skin once daily (every 24 hours) For upper mid back pain. 30 Patch 2 carbamide peroxide (DEBROX) 6.5 % otic solution Place 5 Drops into both ears 2 (two) times daily 15mL 0 travoprost (TRAVATAN Z) 0.004 % ophthalmic solution Apply 1 Drop to eye daily 2.5 mL 2 latanoprost (XALATAN) 0.005 % ophthalmic solution [id number]-[id number] (EXCEDRIN MIGRAINE) 250-250-65 mg per tablet Take 2 Tabs by mouth 2 (two) times daily as needed for other reason (headache) Max 4 tabs per day 30 Tab 1 No current facility-administered medications for this visit. Review of Systems: Additional review of systems: See HPI, remainder of ROSs negative or non-contributory. 04/14/2025 9:44 AM Little interest or pleasure in doing things Not at all Feeling down, depressed or hopeless [include irritable if under 18] Not at all Trouble falling or staying asleep, or sleeping too much Not at all Feeling tired or having little energy Not at all Poor appetite or overeating? Not at all Feeling bad about yourself - or that you are a failure or have let yourself or your family down Notat all Trouble concentrating on things, such as reading the newspaper or watching television? Not at all Moving or speaking so slowly that other people could have noticed? Or the opposite - being so fidgety or restless that you have been moving around a lot more than usual Not at all Thoughts you would be better off or of hurting yourself in some way Not at all If you checked off any problems, how difficult have these problems made it for you to do your work,take care of things at home, or get along with other people? Not difficult at all PHQ-9 Total Score (Auto Calculated) 0 Depression Severity: None-minimal Objective: BP 108/82 (Right Arm, Sitting, Large Adult) Pulse 72 Temp 98.1 ??F (36.7 ??C) Resp 16 Ht 5'8 (1.727 m) Wt 207 lb (93.9 kg) SpO2 98% BMI 31.47 kg/m?? Smoking Status Never BSA 2.12 m?? General Survey: No sign of acute distress. Alert and orientated to person, place, and time. Hearingintact. Skin: Appropriate to ethnicity. HEENT: Head: Normocephalic. . Face: symmetric. Eyes: PERRLA. EOM intact. Ears: Canals with minimum ear wax. Tympanic membranes pearly zelaya, intact. Nose: Nares patent. No lesions or polyps. Mouth/Throat: Oral mucosal pink and moist.Tonsils +1. Neck: No lymphadenopathy. Trachea mid-line. Thyroid: nonodules palpated. Respiratory: Clear lung sounds anterior and posterior bilaterally. No rhonchi, wheeze, or crackles.Respirations unlabored. Cardiovascular: Heart sounds: S1, S2, with no S3 or S4, murmur. Rate regular. . Gastrointestinal: Soft, and symmetric. No tenderness with light and deep palpation. Bowel sounds present in all 4 quadrants. . Genitourinary:. No fullness over bladder. Testes; deferred Musculoskeletal: Active ROM to upper and lower extremities bilaterally. Gait: Steady. . Neurologic: Mental Status: Appearance, behavior, speech appropriate. Alert and orientated to person, place and time. Lab Results Component Value Date HGB 15.5 03/23/2025 HCT 47.1 03/23/2025 Lab Results Component Value Date CREATININE 0.98 03/23/2025 EGFR 93 03/23/2025 Lab Results Component Value Date TRIGLYC 86 08/19/2025 CHOL 152 08/19/2025 HDL 40 08/19/2025 LDL 94 08/19/2025 CHOLHDL 3.8 08/19/2025 NONHDL 112 08/19/2025 Lab Results Component Value Date HGBA1C 6.1 (H) 08/19/2025 Lab Results Component Value Date TSH 1.20 03/23/2025 The 10-year ASCVD risk score (Sanchez DIAZ, et al., 2019) is: 3.2% Values used to calculate the score: Age: 50 years Clinically relevant sex: Male Is Non- : No Diabetic: No Tobacco smoker: No Systolic Blood Pressure: 108 mmHg Is BP treated: Yes HDL Cholesterol: 40 mg/dL Total Cholesterol: 152 mg/dL Assessment and Plan: Z00.00 Routine general medical examination at a health care facility (primary encounter diagnosis) I10 Essential hypertension Plan : ENALAPRIL MALEATE 10 MG TABLET - Take 1 Tablet by mouth once daily for blood pressure. R73.03 Prediabetes Plan : METFORMIN 500 MG TABLET - Take 1 Tablet by mouth once daily with breakfast For prediabetes. H54.7 Impaired vision, left Plan : REFERRAL TO OPHTHALMOLOGY E55.9 Vitamin D deficiency Plan : CHOLECALCIFEROL (VITAMIN D3) 50 MCG (2,000 UNIT) TABLET - Take 1 Tablet by mouth once daily. L30.9 Eczema, unspecified type Plan : CLOBETASOL 0.05 % TOPICAL GEL - Apply topically 2 (two) times daily At right thumb. L30.9 Hand dermatitis Plan : CLOTRIMAZOLE-BETAMETHASONE 1 %-0.05 % TOPICAL CREAM - Apply topically 2 (two) times daily At hands. E66.811,E66.09,Z68.31 Class 1 obesity due to excess calories with serious comorbidity and body massindex (BMI) of 31.0 to 31.9 in adult Body mass index is 31.47 kg/m??. Weight management:Adult BMI follow up plan: The patient was counseled regarding nutrition and physical activity. Z23 Need for vaccination Plan : PCV20 VACCINE FOR INTRAMUSCULAR USE Continue all medications Fall and safety precaution given. Side effects of medications discussed and medications reconciled. Follow up in 3 month. documented in this encounter Miscellaneous Notes * Patient Instructions - ALESSIO Uriostegui - 09/24/2025 11:26 AM EDT If you are not able to keep your appointment please call 24-48 hours before your appointment to cancel or reschedule. documented in this encounter Plan of Treatment Scheduled Referrals Name Type Priority Associated Diagnoses Orde r Schedule REFERRAL TO OPHTHALMOLOGY Referral Routine Impaired vision, left Ordered: 09/27/2025 documented as of this encounter Visit Diagnoses Diagnosis Routine general medical examination at a health care facility- Primary Essential hypertension Prediabetes Other abnormal glucose Impaired vision, left Unspecified visual loss Vitamin D deficiency Eczema, unspecified type Hand dermatitis Contact dermatitis and other eczema, due to unspecified cause Class 1 obesity due to excess calories with serious comorbidity and body mass index (BMI) of 31.0 to 31.9 in adult Need for vaccination Need for prophylactic vaccination and inoculation against unspecified single disease documented in this encounter Additional Health Concerns Assessment Noted Time PHQ-9 Depression Total Score: 0 04/14/20 25 9:44 AM PDT documented as of this encounter Care Teams Chemists Relationship Specialty Start Date End Date Giselle Lindsey FNP [address] [place] [address] PCP - General Internal Medicine 09/05/19 documented as of this encounter
--- NOTE | ~2025-09-29 | US_ITS ---
CLINICAL HISTORY: N20.0 - Calculus of kidney US renal Comparison: None Provided Findings: Right kidney 11.0 cm length. No significant focal abnormality. 1.0 and 0.5 cm upper pole cysts. Left kidney 11.5 cm length. No significant focal abnormality. No bilateral hydronephrosis. Normal bilateral renal echogenicity. Impression: No significant abnormalities. This document has been electronically signed by: Ron Peña MD on 09/29/2025 21:38:36
--- OUTSIDE RECORDS SUMMARY | 2025-09-29 15:04 | XMS_ITS | Clinical Summary ---
Author Organization [facility] Address [address] [place] [address] Phone Care Team Providers Care Flatwork Finisher Hand Name Role Phone Giselle Lindsey NP Primary Care Provider [phone] Allergies No known active allergies Medications aspirin [...] History Medical History Date Comments Diabetes mellitus ([facility] V24, [facility] V28) Hyperlipidemia Hypertension Vertigo Social History Tobacco Use Types Packs/Day Years Used Date Smoking Tobacco: Never Assessed Interpersonal Safety Answer Date Record ed Physical Abuse Unrecognized value 11/04/2024 Verbal Abuse Unrecognized value 11/04/2024 Sex and Gender Information Value Date [...] Years (1 of 1 - PCV) 2023 RSV Immunization Adult Patients (1 - Risk 50-74 years 1-dose series) 2023 Zoster Vaccines (1 of 2) 2023 Hepatitis B Vaccines (2 of 2 - CpG 2-dose series) 10/20/2024 09/22/2024 Depression Screening 12/02/2024 Hypertension/CHF/CAD Annual BMP Blood Test 07/21/2025 07/21/2024 COVID-19 Vaccine ( season) 2025 05/23/2022, 05/02/2021, 04/04/2021 Influenza Vaccine (#1) 2025 , 09/22/2021, 10/10/2020, Additional history exists Cholesterol Screening (Lipid Panel) 08/19/2030 08/19/2025, 07/21/2024, 07/21/2024, Additional history exists DTaP,Tdap,and Td Vaccines (2 [...] Maintenance Results * COLONOSCOPY Anesthesia - MAC; [facility] ENDOSCOPY (11/04/2024 11:00 AM EST) Anatomical Region Laterality Modality Other 11/04/2024 10:3 4 AM EST Impressions 11/04/2024 11:02 AM EST - The entire examined colon is normal. - No specimens collected. Recommendation: - Repeat colonoscopy in 10 years for screening purposes. Narrative 11/04/2024 11:02 AM EST [facility] GI Patient Name: William Smith Procedure Date: [...] malignant neoplasm of colon CPT copyright 2020 [employer]. All rights reserved. The codes documented in this report are preliminary and upon tetryl dissolver operator review may be revised to meet current compliance requirements. Lauro Beal MD 11/04/2024 11:02:10 AM This report has been signed electronically.Lauro Beal MD Number of Addenda: 0 Note Initiated On: 11/04/2024 10:34 AM Scope In: Scope Out: Endoscopy Department at [facility] - [address] [place] [phone] Procedure Note Lauro Beal MD - 11/04/2024 [facility] GI Patient Name: William Smith Procedure Date: [...] screening for malignantneoplasm of colon CPT copyright 2020 [employer]. All rights reserved. The codes documented in this report are preliminary and upon tetryl dissolver operator reviewmay be revised to meet current compliance requirements. Lauro Beal MD 11/04/2024 11:02:10 AM This report has been signed electronically.Lauro Beal MD Number of Addenda: 0 Note Initiated On: 11/04/2024 10:34 AM Scope In: Scope Out: Endoscopy Department at [facility] - [address] [place] [phone] IMPRESSION: - The entire examined colon is normal. - No specimens collected. Recommendation: - Repeat colonoscopy in 10 years for screening purposes. Lauro Beal MD GI~PROCEDURE ORDERABLES Final Re sult from Last 3 Months or Most Recently Relevant to Health Maintenance Insurance MEDICAID - [place] Care Teams Flatwork Finisher Hand Relationship Specialty Start Date End Date Giselle Lindsey NP [facility] [place] [address] PCP - General 07/15/24
--- OUTSIDE RECORDS SUMMARY | 2025-09-29 15:04 | XMS_ITS | Clinical Summary ---
Author Organization [facility]erg[facility] With [facility] Address [address] [place] [phone] Phone Care Team Providers Care Special Inspector Name Role Phone Marla Oliver MD, PhD Primary Care Provider Eleazar Stephens MD Unavailable Thee Woodson MD Unavailable [phone] Allergies No known active allergies Medications tamsulosin (FLOMAX) 0.4 mg Cap TAKE 1 CAPSULE BY MOUTH ONCE DAILY FOR PROSTRATE 2 Active aspirin 81 MG EC tablet Take 1 tablet by mouth daily. 2 Active enalapril (VASOTEC) 10 MG tablet 2 Active travoprost (TRAVATAN Z) 0.004 % Drop Place 1 drop into each eye daily. Active Active Problems No known active problems Family History Medical History Relation Comments Tuberculosis Mother Heart attack Sister Relation Status Comments Mother Sister Social History Tobacco Use Types Packs/Day Years Used Date Smoking Tobacco: Never Smokeless Tobacco: Never Alcohol Use Standard Drinks/Week Comments Not Currently 0 (1 standard drink = 0.6 oz pur e alcohol) Education Answer Date Recorded Are you interested in more education? Not on angélica e 03/30/2023 Are you concerned about learning? Not on file 03/30/2023 No 03/30/2023 No 03/30/2023 Digital Access Answer Date Recorded No 04/27/2023 No 04/27/2023 No 04/27/2023 Reliable internet access at home? Not on file 04/27/2023 Device with a working camera? Not on file Sex and Gender Information Value Date Recorded Sex Assigned at Male 03/12/2022 9:44 AM EDT Legal Sex Female 9:54 AM EDT Gender Identity Male 03/12/2022 9:44 AM EDT Sexual Orientation Straight 03/12/2022 9: 44 AM EDT Last Filed Vital Signs Vital Sign Reading Time Taken Comments Blood Pressure 123/83 04/09/2022 4:15 PM EDT Pulse 88 04/09/2022 4:15 PM EDT Temperature - - Respiratory Rate 17 04/09/2022 4:15 PM EDT Oxygen Saturation - - Inhaled Oxygen Concentration - - Weight - - Height - - Body Mass Index - - Plan of Treatment Health Maintenance Due Date Last Done Comments CREATININE LEVEL 1973 POTASSIUM LEVEL 1973 DEPRESSION SCREENING 1985 HIV ONE-TIME SCREENING (18-65 YEARS) 1991 PAP SMEAR 1994 MAMMOGRAM 2013 COLOGUARD 2018 COLONOSCOPY 2018 COLORECTAL CANCER SCREENING 2018 FIT TEST 2018 FOBT 2018 SIGMOIDOSCOPY 2018 VIRTUAL COLONOSCOPY 2018 PNEUMOCOCCAL VACCINES (50+ years) (1 of 1 - PCV) 2023 ZOSTER VACCINES (1 of 2) 2023 INFLUENZA VACCINE (#1) 2025 , 10/10/2020, 01/12/2020 COVID-19 VACCINE (2024- season) 2025 05/23/2022, 05/02/2021, 04/04/2021 LIPID PANEL 05/23/2027 05/23/2022, 05/03, 02/19/2022, Additional history exists Adult Td,Tdap Booster 09/22/2031 09/22/2021 RSV VACCINE (1 - 1-dose 75+ series) 2048 HEPATITIS C SCREENING Completed 01/25/2021 SMOKING STATUS SCREENING (Once After 26 Yrs) Completed 06/21/2022 HEPATITIS A VACCINES Aged Out No long er eligible based on patient's age to complete this topic HIB VACCINES Aged Out No longer eligi ble based on patient's age to complete this topic MENINGOCOCCAL VACCINES (ACWY) Aged Out No longer eligible based on patient's age to complete this topic MENINGOCOCCAL VACCINES (B) Aged Out N o longer eligible based on patient's age to complete this topic Medical Devices Not on [place] [address] [place] [address] [place] [address] [place] [address] [employer] Care Teams Special Inspector Relationship Specialty Start Date End Date Marla Oliver MD, PhD [address] [place] [id number] [email or web address] PCP - General Pediatrics 06/12/22 Eleazar Stephens MD [address] [place] [phone] Ophthalmology 07/06/22 Thee Woodson MD [address] [place] [phone] [email or web address] 07/06/22 Additional Source Comments The information contained in this document represents components of the legal health record. It is not the complete legal health record.[facility] With [facility]
--- OUTSIDE RECORDS SUMMARY | 2025-09-29 15:04 | XMS_ITS | Clinical Summary ---
Author Organization [employer] Address [address] [facility] [address] [place] [address] Care Team Providers Care Professional Security Officer Name Role Phone Unavailable Primary Care Provider Unavailabl e Social History Tobacco Use Types Packs/Day Years [...] Risk 2-dose series) 1992 FIT 10/12/2022 10/12/2021 Zoster Vaccines (1 of 2) 2023 COVID-19 Vaccine ( season) 2025 05/23/2022, 05/02/2021, 04/04/2021 DTaP/Tdap/Td Vaccines (2 - Td or Tdap) 09/22/2031 09/22/2021 Colonoscopy 11/04/2034 11/04/2024 Colorectal Cancer Screening 11/04/2034 RSV Patients and Patients Aged 60 years or older (1 - 1-dose 75+ series) 2048 HIV Screening Completed 07/21/2024 Hepatitis B Vaccines Completed 08/18/2025, 09/22/20 Influenza Vaccine Completed 08/18/2025, , 09/22/2021, Additional history exists Pneumococcal Vaccine: 50+ Years Completed 09/24/2025 HIB Vaccines Aged Out No longer eligi [...]
--- OUTSIDE RECORDS SUMMARY | 2025-09-29 15:04 | XMS_ITS | Clinical Summary ---
Author Organization [facility] Address [address] [place] [address] Care Team Providers Care Psych Therapist Name Role Phone Giselle Lindsey CHILD AND FAMILY COUNSELOR Primary Care Provider [phone] Source Comments PLEASE NOTE, if this patient is a minor, it may be UNLAWFUL to discuss sensitive information that is contained in these records (such as FAMILY PLANNING, MENTAL HEALTH or SUBSTANCE ABUSE) with the minor patient's parent or other person without the patient's specific authorization.[facility] Allergies No known active allergies Medications aspirin-acetamin ophen-caffeine (EXCEDRIN MIGRAINE) 250-250-65 mg per tabletIndication s:Other headache syndrome Take 2 Tabs by mouth 2 (two) times daily as needed for other reason (headache) Max 4 tabs per day 30 Tab 1 04/01/20 20 Active latanoprost (XALATAN) 0.005 % ophthalmic solutionIndicati ons:Acute upper back pain 02/14/20 22 Active travoprost (TRAVATAN Z) 0.004 % ophthalmic solutionIndicati ons:Absolute glaucoma of both eyes Apply 1 Drop to eye daily 2.5 mL 2 04/19/20 23 Active carbamide peroxide (DEBROX) 6.5 % otic solutionIndicati ons:Cerumen debris on tympanic membrane of both ears Place 5 Drops into both ears 2 (two) times daily 15 mL 11/27/20 23 Active lidocaine (LIDODERM) 5 % patchIndications :Essential hypertension Place 1 Patch onto the skin once daily (every 24 hours) For upper mid back pain. 30 Patch 2 07/21/20 24 Active ibuprofen 600 mg tabletIndication s:Essential hypertension Take 1 Tablet by mouth 3 (three) times daily as needed for pain 60 Tablet 2 07/21/20 24 Active acetaminophen (TYLENOL) 500 mg tabletIndication s:Essential hypertension Take 2 Tablets by mouth every 8 (eight) hours as needed for pain 6 tabs per day 60 Tablet 2 07/21/20 24 Active MISCELLANEOUS MEDICAL SUPPLY MISCIndications: Essential hypertension Regular adult size Blood pressure meter. Daily. Dx:I10. Need; 1 year 1 Each 07/24/20 24 Active omeprazole (PRILOSEC) [address] capsuleIndicatio ns:H. pylori infection Take 1 Capsule by mouth 2 (two) times daily before a meal For heartburn 180 Capsule 1 07/24/20 24 Active meclizine (ANTIVERT) 25 mg tabletIndication s:Vertigo Take 1 Tablet by mouth every 8 (eight) hours as needed for dizziness 30 Tablet 2 09/22/20 [address] aspirin [address] tabletIndication s:Essential hypertension Take 1 Tablet by mouth once daily 90 Tablet 3 11/16/20 24 Active sucralfate (CARAFATE) 100 mg/mL suspensionIndica tions:H. pylori infection Take 10 mL by mouth 4 (four) times daily before meals and nightly As needed for heartburn 141 mL 2 03/03/20 25 Active blood-glucose meter monitoring kitIndications:P rediabetes Freestyle lite glucometer, check sugar daily. Dx; R73.03 1 Each 03/03/20 25 Active alcohol swabsIndications :Prediabetes check sugar daily. Dx; R73.03 100 Each 11 03/18/20 25 Active DAILY-JIMI, WITH FOLIC ACID, 400 mcg tab Take 1 Tablet by mouth once daily Active triamcinolone (KENALOG) 0.1 % lotionIndication s:Other eczema Apply topically 2 (two) times daily 60 mL 1 04/14/20 25 Active vitamin B complex capsuleIndicatio ns:Other fatigue Take 1 Capsule by mouth once daily 90 Capsule 1 04/14/20 25 Active multivitamin tabletIndication s:Essential hypertension Take 1 Tablet by mouth once daily. 90 Tablet 3 05/19/20 25 Active hydrocortisone 2.5 % creamIndications :Dermatitis Apply topically 2 (two) times daily. 30 g 2 05/19/20 25 Active mineral oil-hydrophil petrolat (AQUAPHOR) ointmentIndicati ons:Dermatitis Apply topically 2 (two) times daily. 50 g 1 05/19/20 25 Active blood sugar diagnostic stripsIndication s:Prediabetes Freestyle lite teststrips, check sugar daily. Dx; R73.03. 100 Each 11 08/18/20 25 Active lancetsIndicatio ns:Prediabetes Freestyle lite lancets, check sugar daily. Dx; R73.03. 100 Each 08/18/20 25 Active cholecalciferol (VITAMIN D-3) 50 mcg (2,000 unit) tabletIndication s:Vitamin D deficiency Take 1 Tablet by mouth once daily. 90 Tablet 3 09/24/20 25 Active clobetasoL (TEMOVATE) 0.05 % gelIndications:E czema, unspecified type Apply topically 2 (two) times daily At right thumb. 15 g 2 09/24/20 25 Active clotrimazole-bet amethasone (LOTRISONE) 1-0.05 % creamIndications :Hand dermatitis Apply topically 2 (two) times daily At hands. 30 g 2 09/24/20 25 Active enalapril (VASOTEC) 10 mg tabletIndication s:Essential hypertension Take 1 Tablet by mouth once daily for blood pressure. 90 Tablet 3 09/24/20 25 Active metFORMIN (GLUCOPHAGE) 500 mg tabletIndication s:Prediabetes Take 1 Tablet by mouth once daily with breakfast For prediabetes. 90 Tablet 1 09/24/20 25 Active clobetasoL (TEMOVATE) 0.05 % gelIndications:E czema, unspecified type Apply topically 2 (two) times daily At right thumb 15 g 2 07/21/20 24 025 Discontinu ed(Reorder (E-Cancel Not Sent)) fenofibric acid, choline, (TRILIPIX) [address] capsuleIndicatio ns:Hypertriglyce ridemia Take 1 Capsule by mouth once daily For cholesterol 90 Capsule 1 03/18/20 25 025 Discontinu ed(Therapy completed/ Not needed) testosterone (ANDROGEL) 12.5 mg/ 1.25 gram (1 %) gel pumpIndications: Testicular hypofunction Place 2 Pumps onto the skin once daily for 30 days 75 g 04/08/20 25 025 Discontinu ed(Patient Stopped Taking) metFORMIN (GLUCOPHAGE) 500 mg tabletIndication s:Prediabetes Take 1 Tablet by mouth once daily with breakfast For prediabetes 90 Tablet 1 04/14/20 25 025 Discontinu ed(Reorder (E-Cancel Not Sent)) ergocalciferol (VITAMIN D-2) 1,250 mcg (50,000 unit) capsuleIndicatio ns:Vitamin D deficiency Take 1 Capsule by mouth once a week. 12 Capsule 3 05/20/20 25 025 Discontinu ed(Exchang e, Therapeuti c) clotrimazole-bet amethasone (LOTRISONE) 1-0.05 % creamIndications :Hand dermatitis Apply topically 2 (two) times daily At hands. 30 g 2 08/18/20 25 025 Discontinu ed(Reorder (E-Cancel Not Sent)) enalapril (VASOTEC) 10 mg tabletIndication s:Essential hypertension Take 1 Tablet by mouth once daily for blood pressure. 90 Tablet 3 08/18/20 25 025 Discontinu ed(Reorder (E-Cancel Not Sent)) Active Problems Problem Noted Date Diagnosed Date [...] Overview (08/23/2020): 08/05/2020: CT of abd/pelvis at [facility]: Direct comparison to noncontrast Abdomen- Pelvis CT: [...] Overview (08/23/2020): 08/05/2020: CT of abd/pelvis at [facility]: Direct comparison to noncontrast Abdomen- Pelvis CT: [...] Overview (08/23/2020): 08/05/2020: CT of abd/pelvis at [facility]: Direct comparison to noncontrast Abdomen- Pelvis CT: [...] Overview (08/23/2020): 08/05/2020: CT of abd/pelvis at [facility]: Direct comparison to noncontrast Abdomen- Pelvis CT: [...] Encounters Date Type Department Care Team Description 09/24/2025 10:40 AM EDT Office Visit [address] [address] Giselle Lindsey FNP 08/23/2025 Results Follow-Up [address] [address] Giselle Lindsey FNP 08/18/2025 11:00 AM EDT Office Visit [address] [address] Giselle Lindsey FNP from Last 3 Months Immunizations Immunization Administration Dates Next Due Flu, Adjuvant, 65y+ (Fluad) 10/10/2020 Flu, Cell Culture based, Pre servative Free, 6m+, Flucelvax 01/12/2020 Flu, Preservative Free 10/11/2022,09/22/2021,08/2020 Hep B,adult,adjuvanted (HEPLISAV) 08/18/2025,10/ Influenza (FLUBLOK),recombinant,injectable,preservati ve Free 08/18/2025 Moderna COVID-19 Vaccine, re d cap blue label, 12+ Primary Series 05/02/2021,04/04/2021 PFIZER COVID VACCINE, PURPLE CAP, 12+ 05/23/2022 PNEUMOCOCCAL CONJUGATE PCV 20 (Prevnar 20) 09/24 TDAP 09/22/2021 Family History Medical History Relation [...] Mass Index 31.47 09/24/2025 10:52 AM EDT Plan of Treatment Health Maintenance Due Date Last Done Comments Dental FMX/Pano 1973 Dental Perio Charting [address] Colonography 2018 Fecal DNA 2018 Flexible Sigmoidoscopy 2018 FIT/gFOBT 10/12/2022 10/12/2021 Imm-Zoster, Recombinant (1 of 2) 2023 Dental BW 05/26/2024 05/24/2023 Dental Examination 05/26/2024 05/24/2023 HIV Screening 07/21/2025 07/21/2024, 01/25/2021 Syphilis Screening 07/21/2025 07/21/2024 [id number] ( season) 2025 05/23/2022, 05/02/2021, 04/04/2021 Anxiety Screening 04/14/2026 04/14/2025 Diabetes Screening 08/19/2026 08/19/2025, 0 03/23/2025, 03/23/2025, Additional history exists Annual Wellness (Adult): Indicated (All Coverage) 09/24/2026 09/24/2025, 09/22/2024, 04/05/2023, Additional history exists Tobacco Screening 09/24/2026 09/24/2025 Lipid Screening 08/19/2028 08/19/2025, 03/03, 07/21/2024, Additional history exists Imm-DTaP/Tdap/Td (2 - Td or Tdap) 09/22/2031 021 Colonoscopy 11/04/2034 11/04/2024 Colorectal Cancer Screening 11/04/2034 Hepatitis C Screening Completed 01/25/2021 Alcohol and Drug Screen Completed 03/18/20, 07/21/2024, 02/14/2022, Additional history exists Depression Annual Screen Completed 04/14/2025 Imm-Hepatitis B Completed 08/18/2025, 09/22/2024 Imm-Influenza Completed 08/18/2025, 10/02, 09/22/2021, Additional history exists Imm-Pneumococcal 50+ Completed 09/24/2025 Imm-Hepatitis A Discontinued Procedures Procedure Name Priority Date/Time Associated Diagnosis Comments HGBA1C W/MPG Routine 08/19/2025 8:54 AM EDT Prediabetes Mixed hyperlipidemia LIPID PANEL Routine 08/19/2025 8:54 AM EDT Prediabetes Mixed hyperlipidemia HEALTH HISTORY SCANNED DOCUMENT 07/29/2025 3:00 AM EDT HISTORIC COLONOSCOPY 11/04/2024 3:00 AM EST HIV [...] Recently Relevant to Health Maintenance Results * (ABNORMAL) HGBA1C W/MPG Routine (08/19/2025 8:54 AM EDT) HEMOGLOBIN A1C 6.1(H) <5.7 % 08/20/2025 5:08 AM EDT Lindsey Shell [facility] MEAN PLASMA GLUCOSE 140 mg/dL (calc) 08/20/2025 5:08 AM EDT Lindsey Shell [facility] Blood Blood / Unknown 08/19/2025 8 :54 AM EDT 08/20/2025 3:39 AM EDT [facility] - 08/20/2025 5:22 AM EDT FASTING:YES For someone without known diabetes, a hemoglobin A1c value between 5.7% and 6.4% is consistent with prediabetes and should be confirmed with a follow-up test. . For someone with known diabetes, a value <7% indicates that their diabetes is well controlled. A1c targets should be individualized based on duration of diabetes, age, comorbid conditions, and other considerations. . This assay result is consistent with an increased risk of diabetes. . Currently, no consensus exists regarding use of hemoglobin A1c for diagnosis of diabetes for children. . Giselle Lindsey [facility] - BLOOD DRAW Final Result Lindsey Shell [facility] [address] [address], Lindsey Shell [address] [address] * LIPID PANEL Routine (08/19/2025 8:54 AM EDT) CHOLESTEROL, TOTAL 152 <200 mg/dL 08/20/2025 7:33 AM EDT Lindsey Shell [facility] HDL CHOLESTEROL 40 > OR = 40 mg/dL 08/20/2025 7:33 AM EDT Lindsey Shell [facility] TRIGLYCERIDES 86 <150 mg/dL 08/20/2025 7:33 AM EDT Lindsey Shell [facility] LDL-CHOLESTEROL 94 mg/dL (calc) 08/20/2025 7:33 AM EDT Lindsey Shell [facility] CHOL/HDLC RATIO 3.8 <5.0 (calc) 08/20/2025 7:33 AM EDT Lindsey Shell [facility] NON-HDL CHOLESTEROL 112 <130 mg/dL (calc) 08/20/2025 7:33 AM EDT Lindsey Shell [facility] Blood Blood / Unknown 08/19/2025 8 :54 AM EDT 08/20/2025 5:07 AM EDT [facility] - 08/20/2025 7:34 AM EDT FASTING:YES Reference range: <100 . Desirable range <100 mg/dL for primary prevention; <70 mg/dL for patients with CHD or diabetic patients with > or = 2 CHD risk factors. . LDL-C is now calculated using the Rolf calculation, which is a validated novel method providing better accuracy than the Friedewald equation in the estimation of LDL-C. Mike KENNY et al. ADDIE. 2013;31019): 7231-3863 (http://education.ThromboVision/faq/XTX923) For patients with diabetes plus 1 major ASCVD risk factor, treating to a non-HDL-C goal of <100 mg/dL (LDL-C of <70 mg/dL) is considered a therapeutic option. [facility] - BLOOD DRAW Final Result [employer] [address] [address], Lindsey Shell [address] [address] * HEALTH HISTORY SCANNED DOCUMENT (07/29/2025 3:00 AM EDT) 07/29/2025 3:00 AM EDT [facility] Provider Default SCAN OTHER ORDERS Final Re sult * HISTORIC COLONOSCOPY (11/04/2024 3:00 AM EST) 11/04/2024 3:00 AM EST [facility] PROCEDURES Final Result * RPR (DIAGNOSIS) WITH REFLEX TO TITER AND CONFIRMATORY TESTING (07/21/2024 5:31 PM EDT) RPR (DX) W/REFL TITER AND CONFIRMATORY TESTING NON-REACT DAYANA NON-REACT DAYANA Lindsey Shell [facility] Comment: No laboratory evidence of syphilis. If recent exposure is suspected, submit a new sample in 2-4 weeks. Serum Blood / Unknown 07/21/2024 5 :31 PM EDT 07/21/2024 5:32 PM EDT Giselle Lindsey [facility] - BLOOD DRAW Edited Result - Final Performing Organization Address City/[facility]/ZIP Co de Phone Number Lindsey Shell [address] [address], Lindsey Shell [address] [address] * HIV 1/2 AG & AB W/RFLX (4TH GEN) (07/21/2024 5:31 PM EDT) HIV AG/AB, 4TH GEN NON-REAC TIVE NON-REAC TIVE Lindsey Shell [facility] Comment: HIV-1 antigen and HIV-1/HIV-2 antibodies [...] purpose. For additional information please refer to http://education.Whelse/faq/HDA218 (This link is being provided for informational/ educational purposes only.) The performance of this assay has not been clinically validated in patients less than 2 years old. Blood Blood / Unknown 07/21/2024 5 :31 PM EDT 07/21/2024 5:32 PM EDT Giselle Lindsey [facility] - BLOOD DRAW Final Result Performing Organization Address City/[facility]/ZIP Co de Phone Number Lindsey Shell [facility] [address] [address], Lindsey Shell [address] [address] * FIT DIAGNOSITC ONLY (10/12/2021 12:38 PM EST) FECAL GLOBIN BY IMMUNOCHEMISTRY See Note [facility] Comment: FECAL GLOBIN BY IMMUNOCHEMISTRY Micro Number: [id number] Test Status: Final Specimen Source: Insure (tm) fobt test card Specimen Quality: Adequate Fecal Globin: Not Detected NO COLLECTION DATE RECEIVED. WE HAVE USED THE DATE THE SPECIMEN WAS RECEIVED BY THIS LABORATORY THE COLLECTION DATE. IF THIS IS INCORRECT, PLEASE CONTACT CLIENT SERVICES. PHONE NUMBER: Stool Stool specimen / Unknown 10/11/2021 8:58 AM EST Gisellejonatan Lindsey CHILD AND FAMILY COUNSELOR LAB BODY FLUIDS AND STOOLS AMB ULATORY Final Result Performing Organization Address City/[facility]/ZIP Co de Phone Number Lindsey Shell [facility] [address] [address], Lindsey Shell [facility] [address] [address] * HEPATITIS C ANTIBODY (01/25/2021 11:31 AM EST) HEPATITIS C VIRUS SCREEN NEGATIVE NEGATIVE [facility] Blood Blood / Unknown 01/25/2021 1 1:31 AM EST 01/25/2021 3:46 PM EST Narrative [facility] 01/25/2021 5:38 PM EST [employer], [place] [address] Railcar Brake Operator - Jacqueline Krishnamurthy MD PT ID [id number] ORD# [id number] Gisellejonatan Lindsey [facility] - BLOOD DRAW Final Result [address] [address], from Last 3 Months or Most Recently Relevant to Health Maintenance Insurance [place] [facility] S[employer] NET DENTAL [address] ACO Care Teams Psych Therapist Relationship Specialty Start Date End Date Giselle Lindsey FNP [address] [place] [id number] PCP - General Internal Medicine 09/05/19
== END 2025-09-29 11:37 | disposition home or self-care (01) ==
LOC: HO.US 11:36
PROVIDERS: Visit Provider Nurse Practitioner Family
DX: N20.0 Calculus of kidney (principal)
CPT/HCPCS: 76775

== ENCOUNTER → 2025-09-29 11:41 | Outpatient (BNV) | payer MEDICAID, SELFPAY | PROVIDERS: Visit Provider Radiology Diagnostic Radiology | DX: N20.0 Calculus of kidney (principal) | CPT/HCPCS: 76775 ==

== ENCOUNTER 2025-10-27 11:31 | Outpatient (REF) | payer MEDICAID, SELFPAY ==
[2025-10-27 13:29] LABS: Prostate Specific Antigen 0.65 ng/mL (<0.05-4.0)
--- OUTSIDE RECORDS SUMMARY | 2025-10-27 14:33 | XMS_ITS | Clinical Summary ---
Author Organization [address] [facility] Address [address] [place] [address] Phone Care Team Providers Care Consultant Technology Name Role Phone Giselle Lindsey NP Primary Care Provider [phone] Allergies No known active allergies Medications aspirin [...] History Medical History Date Comments Diabetes mellitus ([facility] V24, [facility] V28) Hyperlipidemia Hypertension Vertigo Social History Tobacco [...] Maintenance Results * COLONOSCOPY Anesthesia - MAC; [facility] ENDOSCOPY (11/04/2024 11:00 AM EST) Anatomical Region Laterality Modality Other 11/04/2024 10:3 4 AM EST Impressions 11/04/2024 11:02 AM EST - The entire examined colon is normal. - No specimens collected. Recommendation: - Repeat colonoscopy in 10 years for screening purposes. Narrative 11/04/2024 11:02 AM EST [facility] GI Patient Name: William Smith Procedure Date: [...] malignant neoplasm of colon CPT copyright 2020 [employer]. All rights reserved. The codes documented in this report are preliminary and upon client technical specialist review may be revised to meet current compliance requirements. Lauro Beal MD 11/04/2024 11:02:10 AM This report has been signed electronically.Lauro Beal MD Number of Addenda: 0 Note Initiated On: 11/04/2024 10:34 AM Scope In: Scope Out: Endoscopy Department at [facility] - [address] [place] [id number] Procedure Note Lauro Beal MD - 11/04/2024 [facility] GI Patient Name: William Smith Procedure Date: [...] for malignantneoplasm of colon CPT copyright 2020 [employer]. All rights reserved. The codes documented in this report are preliminary and upon client technical specialist reviewmay be revised to meet current compliance requirements. Lauro Beal MD 11/04/2024 11:02:10 AM This report has been signed electronically.Lauro Bael MD Number of Addenda: 0 Note Initiated On: 11/04/2024 10:34 AM Scope In: Scope Out: Endoscopy Department at [facility] - [address] [place] [id number] IMPRESSION: - The entire examined colon is normal. - No specimens collected. Recommendation: - Repeat colonoscopy in 10 years for screening purposes. Lauro Beal MD GI~PROCEDURE ORDERABLES Final Re sult from Last 3 Months or Most Recently Relevant to Health Maintenance Insurance MEDICAID - [place] Care Teams Consultant Technology Relationship Specialty Start Date End Date Giselle Lindsey NP [facility] [place] [address] PCP - General 07/15/24
--- OUTSIDE RECORDS SUMMARY | 2025-10-27 14:33 | XMS_ITS | Clinical Summary ---
Author Organization [facility] Address [address] [place] [phone] Phone Care Team Providers Care Printed Products Assembler Name Role Phone Marla Oliver MD, PhD Primary Care Provider [phone] Elezaar Stephens MD Unavailable Thee Woodson MD Unavailable [phone] Allergies No known active allergies Medications tamsulosin [...] topic Medical Devices Not on [place] [address] [place] [address] [place] [address] [place] [address] [employer] Care Teams Printed Products Assembler Relationship Specialty Start Date End Date Marla Oliver MD, PhD [address] [place] [phone] [email or web address] PCP - General Pediatrics 06/12/22 Eleazar Stephens MD [address] [place] [phone] Ophthalmology 07/06/22 Thee Woodson MD [address] [place] [phone] [email or web address] Medicine 07/06/22 Additional Source Comments The information contained in this document represents components of the legal health record. It is not the complete legal health record.[facility]
--- OUTSIDE RECORDS SUMMARY | 2025-10-27 14:33 | XMS_ITS | Clinical Summary ---
Author Organization [employer] Address [address] [facility] [address] [place] [address] Care Team Providers Care Crown Ironer Name Role Phone Unavailable Primary Care Provider [...] Risk 2-dose series) 1992 FIT 10/12/2022 10/12/2021 RSV Patients and Patients Aged 60 years or older (1 - Risk 50-74 years 1-dose series) 2023 Zoster Vaccines (1 of 2) 2023 COVID-19 Vaccine ( season) 2025 05/23/2022, 05/02/2021, 04/04/2021 DTaP/Tdap/Td Vaccines (2 - Td or Tdap) 09/22/2031 09/22/2021 Colonoscopy 11/04/2034 11/04/2024 Colorectal Cancer Screening 11/04/2034 HIV Screening Completed 07/21/2024 Hepatitis B Vaccines [...]
[2025-10-28 07:10] LABS: Follicle Stimulating Hormone 3.9 mIU/mL (1.4-12.8)
[2025-11-02 14:29] LABS: Testosterone, Free 54.9 pg/mL (35.0-155.0)
== END 2025-10-27 11:32 | disposition home or self-care (01) ==
LOC: HO.10HDL 11:31
PROVIDERS: Visit Provider Nurse Practitioner Family
DX: E29.1 Testicular hypofunction (principal)
CPT/HCPCS: 36415; 82670; 82681; 83001; 83002; 84146; 84153; 84270; 84402; 84403